=== PATIENT | male | born 1945 | race Caucasian/White ===

== ENCOUNTER 2019-07-27 20:00 | Outpatient (CLI) | payer OTHER, SELFPAY | END 2019-07-27 20:01 | disposition home or self-care (01) | LOC: SLEEP 07-28 09:38 | PROVIDERS: Family Provider Internal Medicine; PCP Internal Medicine; Visit Provider Internal Medicine | DX: G47.33 Obstructive sleep apnea (adult) (pediatric) (principal) | CPT/HCPCS: 95810 ==

== ENCOUNTER → 2019-08-09 05:04 | Day surgery (SDC) | payer OTHER, SELFPAY ==
[2019-08-07] MEDS: diphenhydrAMINE 50 mg Capsule PO (07:23)
[2019-08-07 08:14] LABS: Basophils # 0.1 10^3/uL (0.0-0.1); Basophils % 0.7 %; Eosinophils # 0.2 10^3/uL (0.0-0.8); Eosinophils % 2.7 %; Hemoglobin 14.6 g/dL (11.7-16.6); Lymphocytes # 2.2 10^3/uL (0.8-4.8); Lymphocytes % 30.5 %; Mean Corpuscular Hemoglobin 30.9 pg (28.0-34.0); Mean Corpuscular Volume 90.9 fL (80-94); Mean Platelet Volume 10.4 fL (7.4-10.4); Monocytes # 0.8 10^3/uL (0.2-0.9); Monocytes % 11.4 %; Neutrophils # 3.9 10^3/uL (1.8-7.7); Neutrophils % 54.3 %; Nucleated Red Blood Cells % 0 %; Platelet Count 286 10^3/cmm (130-400); Red Blood Count 4.73 10^6/uL (4.1-5.3); White Blood Count 7.1 10^3/uL (4.0-10.0)
[2019-08-07 08:19] LABS: INR 1.43 (0.8-1.2)
[2019-08-07 08:31] LABS: Alanine Aminotransferase 33 U/L (0-41); Albumin Level 4.7 g/dL (3.5-5.2); Alkaline Phosphatase 55 IU/L (40-130); Anion Gap 16.4 (5-19); Aspartate Amino Transferase 19 U/L (0-40); Blood Urea Nitrogen 27 mg/dL (8-23); Calcium 10.6 mg/Dl (8.8-10.2); Carbon Dioxide 28 mmol/L (22-29); Chloride 97 mmol/L (98-107); Globulin 2.8 g/dL (1.3-4.6); Glucose 113 mg/dL (74-106); Potassium 4.4 mmol/L (3.5-5.1); Sodium 137 mmol/L (136-145); Total Bilirubin 0.4 mg/dL (0.15-1.2); Total Protein 7.5 g/dL (6.6-8.7)
--- NOTE | 2019-08-07 09:52 | PC.NURSE ---
Discharged home Pt did not hold Pradaxa for 2 days like instructed to do. Dr Mcgill states to reschedule procedure. Pt rescheduled for 08/09/2019, given new instructions along with date and time of procedure. Verbalized understanding.
[2019-08-09] VITALS (14 sets, daily range): BP systolic 92–125; BP diastolic 44–65; PULSE 38–52; RESP 8–45; TEMP 36.7; O2SAT 94–100; BMI 33.5
--- NOTE | 2019-08-09 05:30 | XACV_ITS ---
Ht: 183 cm Wt: 112 kg BSA: 2.42 m2 Gender: Male : 1945 Any Known Allergies: Other Exam Priority: Routine Procedure(s): Procedure Description: Diagnostic procedure Procedure Description: Left Heart Catheterization Procedure Description: Left ventriculography Diagnostic Cath Status: Elective Diagnostic Findings LM has 0% stenosis. LAD has 0% stenosis. CX has 0% stenosis. dRCA: Mild 40% stenosis, GERALDO: 3 flow. Coronary angiography shows right dominance. The left main is a medium to large caliber vessel with no significant stenotic lesions. The left descending artery is a medium to large caliber vessel which appears to wrap around the LV apex. Some intimal irregularities were noted in the midsegment. No significant stenotic lesions. Exactly is a medium to large caliber vessel which gives off a high obtuse marginal branch(intermedius artery). No significant stenotic lesions were noted in these vessels. The right coronary artery is a medium to large caliber dominant vessel which was found to have an eccentric around 40% tubular narrowing in the distal segment. No other significant stenotic lesions were noted. Conclusions This is a 73-year-old white male present with complaints of increasing shortness of breath and palpitations. He was found to be in atrial fibrillation with rapid ventricular rate. His LV ejection fraction was around 35% by echocardiogram. He had a myocardial perfusion imaging which revealed mostly areas of fixed defects with small areas of reversible defects. Patient has been complaining of episodes of chest tightness/heaviness. He has a history of high blood pressure, type 2 diabetes and dyslipidemia. In view of his multiple risk factors and the abnormal objective findings, in order to further evaluate his coronary status, a cardiac catheterization was recommended. Patient underwent left heart catheterization with a left and right coronary angiogram and LV angiogram today. The findings are as follows. There is mild coronary artery disease with one vessel disease. Moderate left ventricular systolic dysfunction. Ejection fraction of 35- 40 %. LVEDP of 15 mmHg. Recommendations Continue current medical management and risk factor modification. Diagnostic RX Recommendation: medical therapy and/or counseling LV EDP: 15 mmHg Ejection Fraction: 35.0 % Left Ventriculography Findings: The LV gram revealed diffuse hypokinesia left undergoing with an ejection fraction around 35 to 40%. LV cavity was found to be mildly dilated. There is no significant mitral valve prolapse or any mitral regurgitation. The LVEDP was 15 prior to the LV angiogram and went down to 14 following the LV angiogram. Pressures Phase:Rest AO : 78 mmHg / 51 mmHg ( 64 mmHg ) @ 1:22:00 AM 108 mmHg / 28 mmHg ( 64 mmHg ) @ 1:33:00 AM LV : 112 mmHg / 2 mmHg / @ 1:32:00 AM 108 mmHg / 2 mmHg / @ 1:32:00 AM 196 mmHg / 36 mmHg / @ 1:32:00 AM 105 mmHg / 2 mmHg / @ 1:33:00 AM Clinical Evaluation EBL: 5mL-10mL Procedural Details Bolus stopped at 90 mL running at 100mL/hr. Medication's Wasted: Heparin = 1000 units. Contrast Material : Omnipaque 130 ml. [facility] time/date stamp having technically issues. All documentation and procedure done between 07:06am-07:43am on 08-09-2019. Procedure Consent Obtained. Admit Source: In Patient. Pre-Procedure Time Out. Identified patient by full name and date of as verbalized by the patient/guarantor. Does the consent match the physician's order: Yes. Accurate & Complete Informed Consent: Yes. Inpatient/Outpatient History & Physical on Chart: Yes. If H&P is completed, is and addenduem needed: No; If yes, is the addendum complete: N/A. Visualize and Verify Site with Patient/Guarantor: N/A. Relevant Radiology Images available: N/A. Pre-op teaching completed and patient verbalized understanding. The risks, benefits, and alternatives of sedation and/or procedure were discussed by physician. The patient agrees to continue. Procedure started. Correct patient, site and procedure confirmed by cath team. PERRLA. Strong, equal hand fur joiner bilaterally. Lungs clear x 5 lobes. IV Site on Arrival: 20 gauge in the right forearm. Pre Procedural Pulses: bilateral dorsalis pedis was 2+. Pre Procedural Pulses: bilateral posterior tibial was 2+. Pre Procedural Pulses: right radial was 3+. Oxygen started at 2liters/min via nasal canula. bilateral groins was prepped with chloroprep then draped in the usual sterile fashion. right radial was prepped with chloroprep then draped in the usual sterile fashion. Baseline sample Acquired. HR: 66 BPM. 0.9% Saline 250 ml I.V. bolus was started Mei Thomson RN. Physician notified. Physician arrived. Physician scrubbed in. Immediate Pre-Procedure Time Out. Correct Patient: Yes; Correct Procedure: Yes; Correct Site: Yes; Correct Patient Position: Yes; Correct Supplies: Yes; Dried Flammable Prep: Yes; Blood Products Available: N/A;. Lidocaine 1% infiltrated to the right radial. Arterial access obtained. A 5 martiniquais Ki catheter in over wire. Multiple views taken of left coronary artery. Catheter redirected to the RCA. Catheter removed over the exchange wire. A 5 martiniquais JR4 catheter in over wire. Multiple views taken of right coronary artery. Catheter out. A 5 martiniquais Angled Pig catheter in over wire. EDP Sample taken: LV 112/2,15; HR: 47 BPM; SpO2: 98%. LV gram performed in ESTRADA @ 10 mL/second for a total of 30 mL. EDP Sample taken: LV 105/2,14; HR: 49 BPM; SpO2: 98%. Pullback taken: LV Off; AO Off; Mean: , Peak to Peak: , SEP: ; HR: 50 BPM; SpO2: 96%. Catheter out. TR band placed. Hemostasis obtained. Post Procedure: Pulses reassessed and unchanged. PERRLA. Strong, equal hand fur joiner bilaterally. No VTE prophylaxis required. Medication's Wasted: Lidocaine 1% = 18 mg. Medication's Wasted: Nitro = 49.8 mg. Medication's Wasted: Other = Versed 1 mg. Medication's Wasted: Other = fentanyl 25 mg. Total IV fluids: 250 mL. Contrast type used: Omnipaque 300 mgI/mL, 500 mL bottle. Vital chart was stopped. [facility] Clinical Fraility Score: 4: Vulnerable. Gem Carver Indications: Cardiomyopathy. Chest Pain Symptom Assessment: Atypical Angina. Cardiovascular Instability: No. Post-op diagnosis: mild CAD, cardiomyopathy. Complications: none. Estimated blood loss: 5mL-10mL. Procedure completed. Patient transferred by wheelchair to CPRU. A TR Band was successful obtaining hemostatsis at the Right Radial artery insertion site. Site: Right Radial artery Sheath Size: 6 Fr Hemostasis Method: TR Band Hemostasis Success: Successful Procedure Medications Start: 7:07 AM Stop: 7:07 AM Medication: 0.9% Saline Amount: 250 ml Route: I.V. bolus Start: 7:16 AM Stop: 7:16 AM Medication: Versed 1 mg and Fentanyl 25 mcg Amount: 1 Start: 7:17 AM Stop: 7:17 AM Medication: 0.9% Saline Amount: 100 ml/hr Route: I.V. drip Start: 7:19 AM Stop: 7:19 AM Medication: Verapamil Amount: 5 mg Route: I.A. Start: 7:20 AM Stop: 7:20 AM Medication: Nitrogylcerin Amount: 200 mcg Route: I.A. Start: 7:22 AM Stop: 7:22 AM Medication: Versed Amount: 1 mg Route: I.V. Start: 7:22 AM Stop: 7:22 AM Medication: Heparin Amount: 5000 units Route: I.V. Start: 7:27 AM Stop: 7:27 AM Medication: 0.9% Saline Amount: 50 ml Route: I.V. bolus I, the attending physician, have reviewed and verified all procedure medications. Yes, all medications given per verbal order History/Risk Factors Hypertension: Yes Dyslipidemia: Yes Diabetic Therapy: Oral Peripheral Arterial Disease (PAD): No Myocardial Infarction (MO): No Obesity: No Renal Disease: No Tobacco Use: Never Prior Interventions PCI: No CABG: No Valve Surgery: No Report Signatures Finalized by:Dr Israel Mcgill MD [facility] on 08/09/2019 1:37:45 PM
[2019-08-09] MEDS: diphenhydrAMINE 50 mg Capsule PO (05:44)
[2019-08-09 06:04] LABS: Anion Gap 16.6 (5-19); Blood Urea Nitrogen 31 mg/dL (8-23); Calcium 10.2 mg/Dl (8.8-10.2); Carbon Dioxide 27 mmol/L (22-29); Chloride 97 mmol/L (98-107); Glucose 111 mg/dL (74-106); Potassium 4.6 mmol/L (3.5-5.1); Sodium 136 mmol/L (136-145)
--- NOTE | 2019-08-09 06:39 | PC.NURSE ---
DR APPLE CALLED WITH [facility] RE DRAW CREATININE SAME BEFORE AT 1.3. NEW ORDERS RECEIVED FOR A 250 ML NS BOLUS.
[2019-08-09] MEDS: sodium chloride 0.9% 250 ML 999 ML IV (06:53)
--- NOTE | 2019-08-09 07:45 | PC.NURSE ---
BACK FROM CUSHION PADDER RECEIVED THE PATIENT BACK VIA WHEELCHAIR WITH DANIELLE HOANG RN, CAP JEWEL PLATE ASSEMBLER, FROM THE CUSHION PADDER S/P DIAGNOSTIC [facility]. PATIENT AMBULATED TO THE BED WITHOUT DIFFICULTLY. PATIENT SLIGHTLY DROWSY BUT ALERT AND ORIENTATED, REQUESTING HIS JASMINE TO READ. SUPERVISOR OF RESEARCH PLACED AND VITAL SIGNS OBTAINED. TR BAND INTACT TO THE RIGHT RADIAL. NO BLEEDING OR HEMATOMA NOTED. PALPABLE RADIAL PULSE. IVF RUNNING AT 100ML/HR TO THE PIV IN RIGHT FA ORDERED. NO OTHER ASSESSMENT CHANGES NOTED FROM PRE CATH ASSESSMENT. WILL CONTINUE TO MONITOR.
--- NOTE | 2019-08-09 07:50 | PC.NURSE ---
DR APPLE CALLED PATIENT'S HR 29-56 AFTER COMING BACK FROM THE ELECTROCHEMIST. BP STABLE AT 118/65. PATIENT ASYMPTOMATIC WITH NO COMPLAINTS VOICED. DR APPLE NOTIFIED. ORDERS RECEIVED TO WATCH THE PATIENT AND IF THE BRADYCARDIA PERSISTS OR THE PATIENT BECOMES SYMPTOMATIC GIVE ATROPINE 1MG IV.
--- NOTE | 2019-08-09 08:45 | PC.NURSE ---
TR BAND NOTE LETTING THE AIR OUT OF THE TR BAND PER PROTOCOL.
--- NOTE | 2019-08-09 08:50 | PC.NURSE ---
OOB TO CHAIR PATIENT REQUESTING TO GET OUT OF THE BED TO THE RECLINER. BREAKFAST TO THE PATIENT.
--- NOTE | 2019-08-09 09:45 | PC.NURSE ---
TR BAND OFF TR BAND OFF. NO BLEEDING OR HEMATOMA NOTED. SITE CLEANSED WITH WARM WATER AND PATTED DRY. A LARGE BANDAID WAS APPLIED TO THE SITE AND SECURED WITH COBAN. PATIENT TOLERATED WELL. HE CONTINUES TO BE UP IN THE RECLINER READING HIS JASMINE. NO OTHER ASSESSMENT CHANGES NOTED.
== END | disposition home or self-care (01) ==
PROVIDERS: Family Provider Internal Medicine; PCP Internal Medicine; Visit Provider Internal Medicine Cardiovascular Disease
DX: I25.10 Atherosclerotic heart disease of native coronary artery without angina pectoris (principal); I50.22 Chronic systolic (congestive) heart failure; I48.91 Unspecified atrial fibrillation; I10 Essential (primary) hypertension; E11.9 Type 2 diabetes mellitus without complications; E78.5 Hyperlipidemia, unspecified
CPT/HCPCS: 36415; 80048; 80053; 85025; 85610; 86850; 86900; 93452; C1769; C1887; C1894; J1644; J2001; J2250; J3010; J3490; J7030; J7050; Q0163; Q9967

== ENCOUNTER → 2019-08-16 13:50 | Outpatient (BNVA) | payer OTHER, SELFPAY | PROVIDERS: Family Provider Internal Medicine; PCP Internal Medicine; Visit Provider Nurse Practitioner Family | DX: I25.10 Atherosclerotic heart disease of native coronary artery without angina pectoris (principal) | CPT/HCPCS: 80048 ==

== ENCOUNTER 2019-09-05 20:00 | Outpatient (CLI) | payer OTHER, SELFPAY | END 2019-09-05 20:01 | disposition home or self-care (01) | LOC: SLEEP 09-06 10:04 | PROVIDERS: Family Provider Internal Medicine; PCP Internal Medicine; Visit Provider Internal Medicine | DX: G47.33 Obstructive sleep apnea (adult) (pediatric) (principal) | CPT/HCPCS: 95810; 95811 ==

== ENCOUNTER 2019-10-14 00:40 | Emergency (ER) | payer OTHER, SELFPAY ==
[2019-10-14 00:42] VITALS: BP 163/74; PULSE 87; RESP 18; TEMP 37.5; O2SAT 98; BMI 32.0
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
--- NOTE | 2019-10-14 00:54 | XRR_ITS ---
PROCEDURE INFORMATION: Exam: XR Left Knee Exam date and time: 10/14/2019 12:55 AM Age: 74 years old Clinical indication: Injury or trauma; Fall; Initial encounter; Blunt trauma; Knee; Left TECHNIQUE: Imaging protocol: XR Left knee. Views: 3 views. COMPARISON: No relevant prior studies available. FINDINGS: Bones/joints: Large joint effusion. There is subtle linear lucency through the medial margin of the medial femoral condyle visible on the frontal view. The proximal tibia and fibula are intact. The patella is intact. Soft tissues: Periarticular edema is seen medially. Vasculature: There is marked peripheral arterial atherosclerotic disease. XR/XR knee LT 3V* [id number] IMPRESSION: 1. Suspect nondisplaced fracture in the medial femoral condyle. 2. Large joint effusion.
[2019-10-14 01:00] VITALS: RESP 18; O2SAT 96
[2019-10-14] MEDS: morphine 4 mg/mL SDV 1 mL IVP ×2 (01:00→01:59)
[2019-10-14] MEDS: ondansetron 2 mg/ML SDV 2 mL 4 MG IVP (01:01)
[2019-10-14 01:04] VITALS: PULSE 77
[2019-10-14 01:59] VITALS: RESP 18; O2SAT 98
[2019-10-14 02:47] VITALS: RESP 18; O2SAT 96
[2019-10-14] MEDS: oxyCODONE-APAP 5-325 mg Tablet 2 TAB PO (02:47)
[2019-10-14 03:04] VITALS: BP 128/74; PULSE 93; RESP 18; O2SAT 96
--- NOTE | 2019-10-16 14:37 | DCPLANNER ---
Addendum entered by Jennie Conn 10/16/19 14:40: Patient has [facility], case worker called [facility] to report that patient was seen in the ER and that patient needed a follow up appointment for patient with ortho. promotion manager spoke with Mei, gave her the appointment information. promotion manager will call when appointment is scheduled. Original Note: promotion manager had message to schedule a follow up appointment for patient with ortho. promotion manager called the ortho clinic, spoke with Gillian. promotion manager gave clinic patients information, was told that patients information would be printed and reviewed. Clinic will call case worker and patient with appointment information.
--- NOTE | 2019-10-18 15:12 | DCPLANNER ---
Patient had an appointment scheduled for 10.17.19 with ortho. Patient did attend the appointment.
== END 2019-10-14 03:05 | disposition home or self-care (01) ==
PROVIDERS: Emergency Provider Emergency Medicine; Family Provider Internal Medicine; PCP Internal Medicine
DX: S72.435A Nondisplaced fracture of medial condyle of left femur, initial encounter for closed fracture (principal); M25.462 Effusion, left knee; I48.91 Unspecified atrial fibrillation; I11.0 Hypertensive heart disease with heart failure; I50.9 Heart failure, unspecified; J44.9 Chronic obstructive pulmonary disease, unspecified; E11.9 Type 2 diabetes mellitus without complications; E78.5 Hyperlipidemia, unspecified; E66.9 Obesity, unspecified; Z68.32 Body mass index [BMI] 32.0-32.9, adult; Z79.01 Long term (current) use of anticoagulants; Z79.51 Long term (current) use of inhaled steroids; Z79.84 Long term (current) use of oral hypoglycemic drugs; W01.0XXA Fall on same level from slipping, tripping and stumbling without subsequent striking against object, initial encounter
CPT/HCPCS: 12345; 20610; 29530; 73562; 96374; 96375; 96376; 99282; 99283; J2270; J2405; J3490

== ENCOUNTER → 2019-10-17 12:48 | Outpatient (BNVA) | payer OTHER, SELFPAY | PROVIDERS: Family Provider Internal Medicine; PCP Internal Medicine; Referring Provider Emergency Medicine; Visit Provider Specialist | DX: M25.462 Effusion, left knee (principal) | CPT/HCPCS: 73562 ==

== ENCOUNTER 2019-10-17 14:01 | Outpatient (CLI) | payer OTHER, SELFPAY ==
[2019-10-17 16:36] LABS: Crystals, Fluid See Path Consult
== END 2019-10-17 14:02 | disposition home or self-care (01) ==
LOC: SPT 14:03
PROVIDERS: Family Provider Internal Medicine; PCP Internal Medicine; Visit Provider Specialist
DX: Z46.89 Encounter for fitting and adjustment of other specified devices (principal); S72.435D Nondisplaced fracture of medial condyle of left femur, subsequent encounter for closed fracture with routine healing; X58.XXXD Exposure to other specified factors, subsequent encounter; M25.462 Effusion, left knee; S82.009A Unspecified fracture of unspecified patella, initial encounter for closed fracture; X58.XXXA Exposure to other specified factors, initial encounter
CPT/HCPCS: 80500; 84450; 87070; 89051; L1832

== ENCOUNTER 2019-10-30 12:35 | Outpatient (CLI) | payer OTHER, SELFPAY ==
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
== END 2019-10-30 12:36 | disposition home or self-care (01) ==
LOC: RADSHAW 12:36
PROVIDERS: Family Provider Internal Medicine; PCP Internal Medicine; Visit Provider Specialist
DX: S72.435A Nondisplaced fracture of medial condyle of left femur, initial encounter for closed fracture (principal); X58.XXXA Exposure to other specified factors, initial encounter; M17.12 Unilateral primary osteoarthritis, left knee; M25.462 Effusion, left knee
CPT/HCPCS: 73721

== ENCOUNTER 2021-06-02 10:34 | Outpatient (CLI) | payer OTHER, SELFPAY ==
--- NOTE | 2021-06-02 10:37 | MR_ITS ---
WS: [id number] MRI HEAD WITH CONTRAST WITH ATTENTION TO THE INTERNAL AUDITORY CANALS TECHNIQUE: Sagittal T1, T2 axial, T2 axial flair, axial susceptibility weighted imaging, axial diffus ion weighted images, and coronal T2 images were obtained. Pre and post T1 axial and post T1 coronal i mages. ADC and FSPGR images. Post gadolinium images with attention to the internal auditory canals. A xial fiesta imaging. CLINICAL INFORMATION: MIXED CONDUCTIVE/SENSORINEURAL HEARING LOSS;DIZZINESS AND COMPARISON: None. FINDINGS: No evidence of restricted diffusion to suggest acute ischemia. Ventricular system and basal cisterns are patent. Mild small vessel changes. Moderate parenchymal volume loss. Normal posterior fossa. Norm al vascular flow voids at the skull base. No extra-axial fluid collections. No evidence of mass or ma ss effect. Paranasal sinuses and mastoid air cells well aerated. Small amount of fluid in the maxilla ry sinuses. No hemosiderin on susceptibly weighted images. Proximal 7th and 8th cranial nerves are normal in appe arance. Normal trigeminal nerve root entry zones. Normal cavernous sinuses and Meckel's cave. No evid ence of enhancing IAC or CP angle mass. No abnormal gadolinium enhancement. Normal dural venous sinus es. MR/MR iac's wo/w con* [id number] IMPRESSION: 1. No evidence of restricted diffusion to suggest acute ischemia. 2. Mild small vessel changes with moderate parenchymal volume loss. 3. Proximal 7th and 8th cranial nerves are normal in appearance. No evidence o f enhancing IAC or CP angle mass. 4. Mastoid air cells are well aerated. Small amount of fluid in the maxillary sinuses. 5. No abnormal gadolinium enhancement.
[2021-06-02] MEDS: gadobenate dimeglumine 20 mL vial IV (12:13)
== END 2021-06-02 10:35 | disposition home or self-care (01) ==
LOC: RADSHAW 10:35
PROVIDERS: Family Provider Internal Medicine; PCP Family Medicine; Visit Provider Otolaryngology
DX: H90.8 Mixed conductive and sensorineural hearing loss, unspecified (principal); R42 Dizziness and giddiness
CPT/HCPCS: 70553; A9577

== ENCOUNTER 2021-09-01 14:55 | Outpatient (CLI) | payer OTHER, SELFPAY ==
--- NOTE | 2021-09-01 15:00 | USCV_ITS ---
Gabriel Triana Age: 75 Gender: M : 1945 Exam Date: 09/01/2021 15:09 Ordering Phys: Israel Mcgill MD ([email or web address]) Technologist: Exam Location: [facility] [place] Indication: [id number] BP: 113 / 82 HR: 57 Rhythm: Sinus Technical Quality: Adequate MEASUREMENTS (Male / Female) Normal Values 2D ECHO LV Diastolic Diameter PLAX 5.6 cm 4.2 - 5.9 / 3.9 - 5.3 cm LV Systolic Diameter PLAX 5.6 cm IVS Diastolic Thickness 1.6 cm 0.6 - 1.0 / 0.6 - 0.9 cm IVS Systolic Thickness 1.6 cm LVPW Diastolic Thickness 1.5 cm 0.6 - 1.0 / 0.6 - 0.9 cm LVPW Systolic Thickness 1.4 cm LVOT Diameter 2.1 cm LV Ejection Fraction 2D Teich 7.6 % LV Ejection Fraction MOD 2C 42.6 % LV Ejection Fraction 2C AL 44.2 % LA Diameter 4.5 cm LA Width 5.9 cm LA Height 6.7 cm RA Width 5.1 cm RA Height 7.2 cm Aorta at Sinotubular Diameter 3.1 cm M-MODE Aortic Annulus Diameter 2.5 cm LA Ao Ratio MM 1.8 MV E Point Septal Separation 1.4 cm DOPPLER LVOT Peak Velocity 116.3 cm/s MV Area PHT 5.0 cm squared Mitral E to A Ratio 2.1 MV E' Velocity 46.5 cm/s Mitral E to MV E' Ratio 12.4 Mitral E to LV E' Lateral Ratio 17.6 Mitral E to LV E' Septal Ratio 9.7 TR Peak Velocity 266.7 cm/s TR Peak Gradient 28.4 mmHg TV Peak E Velocity 126.0 cm/s Right Atrial Pressure 3.0 mmHg Pulmonary Artery Systolic Pressu 31.4 mmHg PV Peak Velocity 84.0 cm/s FINDINGS Left Ventricle Moderately increased left ventricular cavity size. Moderately decreased left ventricular systolic function. Left ventricular ejection fraction is estimated at 30 %. Global left ventricular hypokinesis. Abnormal septal motion consistent with conduction abnormality. Abnormal diastolic function. Right Ventricle Normal right ventricular size and systolic function. Right ventricular systolic pressure 30 mmHg. Right Atrium Mildly increased right atrial size. Left Atrium Moderately increased left atrial size. Mitral Valve Structurally normal mitral valve. Trace mitral valve regurgitation. Aortic Valve Aortic valve not well visualized. No aortic valve stenosis. Trace aortic valve regurgitation. Tricuspid Valve Tricuspid valve not well visualized. Tace to mild tricuspid valve regurgitation. Pulmonic Valve Pulmonic valve not well visualized. Trace pulmonary valve regurgitation. Pericardium No pericardial effusion. Aorta Normal size aortic root and proximal ascending aorta. Normal- sized inferior vena cava with normal respiratory variation. CONCLUSIONS 1. This is a technically difficult study. 2. Moderately increased left ventricular cavity size. Severely decreased left ventricular systolic function. Left ventricular ejection fraction is estimated at 30 %. Global left ventricular hypokinesis. Abnormal septal motion consistent with conduction abnormality. 3. Pulmonary artery pressure estimated at 30 mmHg. 4. Trace aortic valve regurgitation. 5. When compared to previous echocardiogram report dated 06/09/2019, left ventricular systolic function may have decreased. Repeat study with echo contrast is recommended for better assessment of LV function. Judy Lewis MD (Electronically Signed) Final Date: 04 September 2021 17:45 S
== END 2021-09-01 14:56 | disposition home or self-care (01) ==
LOC: RAD 14:57
PROVIDERS: PCP Family Medicine; Visit Provider Internal Medicine Cardiovascular Disease
DX: I42.0 Dilated cardiomyopathy (principal); I35.1 Nonrheumatic aortic (valve) insufficiency; R06.00 Dyspnea, unspecified
CPT/HCPCS: 93306

== ENCOUNTER 2021-12-11 06:57 | Outpatient (CLI) | payer OTHER, SELFPAY ==
--- NOTE | 2021-12-11 07:12 | USCV_ITS ---
Gabriel Triana Age: 76 Gender: M : 1945 Exam Date: 12/11/2021 07:28 Ordering Phys: Israel Mcgill MD ([email or web address]) Technologist: Exam Location: [facility] [place] Indication: lv funtion BP: 113 / 72 HR: Rhythm: Sinus Technical Quality: MEASUREMENTS (Male / Female) Normal Values 2D ECHO LV Ejection Fraction MOD 2C 43.2 % LV Ejection Fraction 2C AL 41.9 % FINDINGS Left Ventricle Contrast echocardiogram was performed with the [employer]ison . The left ventricle was found to have diffuse hypokinesia. LV ejection fraction was estimated to be 40% by method of disc Right Ventricle Right Atrium Left Atrium Mildly increased left atrial size. Mitral Valve Aortic Valve Tricuspid Valve Pulmonic Valve Pericardium Aorta IVC CONCLUSIONS 1. Diffuse hypokinesia of the left ventricle. 2. LV ejection fraction estimated to be 40% by method of disc. 3. Mildly dilated left atrium. 4. No pericardial effusion Compared to the study from 06/07/2019, there may not be a significant change in the ejection fraction Dr Israel Mcgill MD [facility] (Electronically Signed) Final Date: 11 Dec 2021 13:37 S
[2021-12-11] MEDS: perflutren protein-a microsphr 0.22 mg/mL SDV 3 mL IV (07:45)
== END 2021-12-11 06:58 | disposition home or self-care (01) ==
LOC: RAD 06:58
PROVIDERS: PCP Family Medicine; Visit Provider Internal Medicine Cardiovascular Disease
DX: I50.1 Left ventricular failure, unspecified (principal); I77.819 Aortic ectasia, unspecified site
CPT/HCPCS: C8924

== ENCOUNTER → 2022-01-12 11:15 | Outpatient (BNVA) | payer OTHER, SELFPAY | PROVIDERS: PCP Family Medicine; Visit Provider Internal Medicine Cardiovascular Disease | DX: I48.11 Longstanding persistent atrial fibrillation (principal); I11.0 Hypertensive heart disease with heart failure; I50.22 Chronic systolic (congestive) heart failure; I27.20 Pulmonary hypertension, unspecified; J44.9 Chronic obstructive pulmonary disease, unspecified | CPT/HCPCS: 99214 ==

== ENCOUNTER → 2022-01-28 07:09 | Outpatient (BNVA) | payer OTHER, SELFPAY | PROVIDERS: PCP Family Medicine; Visit Provider Otolaryngology | DX: S09.91XA Unspecified injury of ear, initial encounter (principal); L29.9 Pruritus, unspecified; H91.93 Unspecified hearing loss, bilateral; H93.13 Tinnitus, bilateral; X58.XXXA Exposure to other specified factors, initial encounter | CPT/HCPCS: 99203 ==

== ENCOUNTER → 2022-07-16 11:19 | Outpatient (BNVA) | payer OTHER, SELFPAY | PROVIDERS: PCP Family Medicine; Visit Provider Internal Medicine Cardiovascular Disease | DX: I25.10 Atherosclerotic heart disease of native coronary artery without angina pectoris (principal); I11.0 Hypertensive heart disease with heart failure; I50.22 Chronic systolic (congestive) heart failure; I27.20 Pulmonary hypertension, unspecified; J44.9 Chronic obstructive pulmonary disease, unspecified; I42.0 Dilated cardiomyopathy; I48.11 Longstanding persistent atrial fibrillation | CPT/HCPCS: 99214 ==

== ENCOUNTER 2022-08-29 20:41 | Emergency (ER) | payer OTHER, SELFPAY ==
[2022-08-29 20:45] VITALS: BP 119/79; PULSE 122; RESP 22; O2SAT 95
--- NOTE | 2022-08-29 21:51 | ECG_ITS ---
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 Measurements Intervals Circle Rate: 93 P: 0 ME: 0 QRS: -23 QRSD: 174 T: 83 QT: 422 QTc: 526 Interpretive Statements ATRIAL FIBRILLATION Left bundle branch block Compared to ECG 06/07/2019 21:30:42 Intraventricular conduction delay now present Myocardial infarct finding now present Left-axis deviation no longer present Electronically Signed On 08-30-2022 8:41:35 [employer] WORKER by Edmundo Willard M.D. [email or web address]
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
--- NOTE | 2022-08-29 21:51 | XRR_ITS ---
PROCEDURE INFORMATION: Exam: XR Chest Exam date and time: 08/29/2022 10:04 PM Age: 76 years old Clinical indication: Shortness of breath; Additional info: SOB TECHNIQUE: Imaging protocol: Radiologic exam of the chest. Views: 1 view. COMPARISON: CR XR chest 1V [id number] 06/06/2019 5:30 PM FINDINGS: Lungs: Mild COPD. Lung base atelectasis or scarring. No consolidation. Pleural spaces: No pneumothorax. No definite effusion. Heart/Mediastinum: The heart is quite large. Vasculature: Advanced diffuse vascular calcification noted. Bones/joints: Unremarkable. XR/XR chest 1V portable [id number] IMPRESSION: Stable chest with large heart but no acute process.
[2022-08-29 21:57] LABS: Basophils # 0.1 10^3/uL (0.0-0.1); Basophils % 0.4 %; Eosinophils # 0.1 10^3/uL (0.0-0.8); Eosinophils % 0.5 %; Hematocrit 36.7 % (42.0-52.0); Hemoglobin 12.3 g/dL (11.7-16.6); Lymphocytes # 1.2 10^3/uL (0.8-4.8); Lymphocytes % 8.4 %; Mean Corpuscular HGB Conc 33.5 g/dL (30.0-36.0); Mean Corpuscular Hemoglobin 31.1 pg (28.0-34.0); Mean Corpuscular Volume 92.9 fl (80-94); Mean Platelet Volume 11.3 fL (7.4-10.4); Monocytes # 2.4 10^3/uL (0.2-0.9); Monocytes % 16.7 %; Neutrophils # 10.34 10^3/uL (1.8-7.7); Neutrophils % 73.4 %; Nucleated Red Blood Cells % 0 %; Platelet Count 247 10^3/cmm (130-400); Red Blood Count 3.95 10^6/uL (4.1-5.3); Red Cell Distribution Width 12.3 % (12.1-15.1); White Blood Count 14.1 10^3/uL (4.0-10.0)
[2022-08-29 22:13] LABS: Troponin(5th) Baseline 31 ng/L (0-15)
[2022-08-29 22:21] LABS: Alanine Aminotransferase 50 U/L (0-41); Albumin Level 3.8 g/dL (3.5-5.2); Alkaline Phosphatase 42 U/L (40-130); Anion Gap 17.5 (5-19); Aspartate Amino Transferase 38 U/L (0-40); Blood Urea Nitrogen 21 mg/dL (8-23); Calcium 8.9 mg/dL (8.5-10.5); Carbon Dioxide 28 mmol/L (22-29); Chloride 99 mmol/L (98-107); Globulin 2.6 g/dL (1.3-4.6); Glucose 127 mg/dL (65-115); NT Pro B Type Natriuretic Pept 19579 pg/mL (0-450); Osmolality Calculated 297 mOsm/kg (285-295); Potassium 3.5 mmol/L (3.5-5.1); Sodium 141 mmol/L (136-145); Total Bilirubin 1.3 mg/dL (0.15-1.2); Total Protein 6.4 g/dL (6.6-8.7)
[2022-08-29] MEDS: FUROsemide 10 mg/mL SDV 4mL 40 MG IVP (23:46)
[2022-08-30 00:32] LABS: Troponin 5 2HR 26.49 ng/L (0-15)
[2022-08-30 00:35] LABS: Troponin 5 2HR Delta -4.51 ABS# (0-10)
[2022-08-30 00:40] VITALS: BP 124/60; PULSE 70; RESP 18; O2SAT 94
== END 2022-08-30 01:37 | disposition home or self-care (01) ==
PROVIDERS: Emergency Medicine; Emergency Provider Emergency Medicine; PCP Family Medicine
DX: I11.0 Hypertensive heart disease with heart failure (principal); I50.9 Heart failure, unspecified; Z79.84 Long term (current) use of oral hypoglycemic drugs; J44.9 Chronic obstructive pulmonary disease, unspecified; E11.9 Type 2 diabetes mellitus without complications; E78.5 Hyperlipidemia, unspecified
CPT/HCPCS: 71045; 80053; 83880; 84484; 85025; 93005; 96374; 99285; J1940

== ENCOUNTER 2022-09-02 10:00 | Emergency (ER) | payer OTHER, SELFPAY ==
[2022-09-02 10:01] VITALS: BP 122/76; PULSE 90; RESP 22; TEMP 37.1; O2SAT 93; BMI 31.1
--- NOTE | 2022-09-02 10:11 | ECG_ITS ---
[facility] Test Date: 2022-09-02 Pat Name: Gabriel Triana Department: Room: Gender: Male Hospice Executive Director: : 1945 Requested By: Ruben Torres Order Number: [id number] Jai MD: Judy Lewis M.D. Measurements Intervals [place] Rate: 101 P: 0 AR: 0 QRS: -33 QRSD: 176 T: 71 QT: 408 QTc: 530 Interpretive Statements ATRIAL FIBRILLATION WITH RAPID VENTRICULAR RESPONSE WITH ABERRANT CONDUCTION OR VENTRICULAR PREMATURE COMPLEXES LEFT AXIS DEVIATION [QRS AXIS < -30] LEFT BUNDLE BRANCH BLOCK [120+ ms QRS DURATION, 80+ ms Q/S IN V1/V2, 85+ ms R IN I/aVL/V5/V6] Compared to ECG 08/29/2022 21:54:50 Aberrant conduction of supraventricular beat(s) now present Ventricular premature complex(es) now present Left-axis deviation now present Electronically Signed On 09-02-2022 12:53:41 LOADING MACHINE OPERATOR HELPER by Judy Lewis M.D. [id number]
--- NOTE | 2022-09-02 10:15 | XRR_ITS ---
PROCEDURE INFORMATION: Exam: XR Chest Exam date and time: 09/02/2022 10:16 AM Age: 77 years old Clinical indication: Cough and dyspnea; Additional info: Dyspnea/cough TECHNIQUE: Imaging protocol: Radiologic exam of the chest. Views: 1 view. COMPARISON: CR (CHEST, ) 08/29/2022 10:04 PM FINDINGS: Lungs: There is nonspecific interstitial congestion in the retrocardiac left lower lobe this finding is similar to prior examination. This finding may reflect atelectasis. Hyperexpansion of the lungs are seen corresponding COPD. The lungs are otherwise unremarkable Pleural spaces: Unremarkable. No pleural effusion. No pneumothorax. Heart/Mediastinum: Unremarkable. No cardiomegaly. Bones/joints: Unremarkable. XR/XR chest 1V portable [id number] IMPRESSION: 1. COPD. 2. Left lower lobe atelectasis.
[2022-09-02 10:29] LABS: Basophils # 0.1 10^3/uL (0.0-0.1); Basophils % 0.5 %; Eosinophils # 0.2 10^3/uL (0.0-0.8); Eosinophils % 1.1 %; Hemoglobin 13.7 g/dL (11.7-16.6); Lymphocytes # 2.6 10^3/uL (0.8-4.8); Lymphocytes % 16.3 %; Mean Corpuscular HGB Conc 34.3 g/dL (30.0-36.0); Mean Corpuscular Hemoglobin 31.7 pg (28.0-34.0); Mean Corpuscular Volume 92.6 fl (80-94); Mean Platelet Volume 10.4 fL (7.4-10.4); Monocytes # 1.3 10^3/uL (0.2-0.9); Monocytes % 8.2 %; Neutrophils # 11.41 10^3/uL (1.8-7.7); Nucleated Red Blood Cells % 0 %; Platelet Count 420 10^3/cmm (130-400); Red Blood Count 4.32 10^6/uL (4.1-5.3); Red Cell Distribution Width 12.3 % (12.1-15.1); White Blood Count 15.8 10^3/uL (4.0-10.0)
[2022-09-02 10:40] LABS: Alanine Aminotransferase 235 U/L (0-41); Albumin Level 3.8 g/dL (3.5-5.2); Alkaline Phosphatase 68 U/L (40-130); Anion Gap 17.5 (5-19); Aspartate Amino Transferase 183 U/L (0-40); Blood Urea Nitrogen 19 mg/dL (8-23); Calcium 9.4 mg/dL (8.5-10.5); Carbon Dioxide 30 mmol/L (22-29); Chloride 92 mmol/L (98-107); Globulin 3.4 g/dL (1.3-4.6); Glucose 123 mg/dL (65-115); Osmolality Calculated 286 mOsm/kg (285-295); Potassium 3.5 mmol/L (3.5-5.1); Sodium 136 mmol/L (136-145); Total Bilirubin 0.5 mg/dL (0.15-1.2); Total Protein 7.2 g/dL (6.6-8.7)
[2022-09-02 10:41] VITALS: BP 129/68; PULSE 93; O2SAT 94
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
[2022-09-02 11:04] LABS: NT Pro B Type Natriuretic Pept 3319 pg/mL (0-450)
[2022-09-02 11:07] LABS: Slide Review Slide Review Perform
--- NOTE | 2022-09-02 11:25 | PC.PHAR ---
PT STATES HE TAKES CARE OF HIS OWN MEDICATIONS-PT STATES HE IS NOT TAKING DIGOXIN 125MCG DAILY ANYMORE ,MEDICATION [facility] ON [facility]-PT STATES BUYS OTC MAG OX 400MG UNTIL [facility] SENDS- PT STATES BEEN TAKING ONE TAB BID-[facility] L[facility] HAS 4 TABS (1600MG)DAILY FOR 7 DAYS AND THEN ONE TAB DAILY-PT STATES UNSURE IF TAKING REMERON 15MG HS MEDICATION ON [facility] MED L[facility]-KCL IS MEDICATION ON [facility] L[facility] -PT STATES NOT STARTED TAKING STATES WAITING TO GET IN THE MAIL-ENTRESTO BOTTLE HAS 1 TAB PO BID-PT STATES WAS DECREASED TO ONE TAB DAILY-NOTES ARE MADE IN THE PHARMACY COMMENTS
[2022-09-02 12:11] VITALS: BP 109/61; PULSE 78; O2SAT 94
[2022-09-02 12:34] LABS: Adenovirus Not Detected (NOT DETECT); Chlamydia Pneumoniae Not Detected (NOT DETECT); Coronavirus 229E,HKU1,NL63,OC4 Detected (NOT DETECT); Human Metapneumovirus Not Detected (NOT DETECT); Human Rhinovirus/Enterovirus Not Detected (NOT DETECT); Influenza A Not Detected (NOT DETECT); Influenza A H1 Not Detected (NOT DETECT); Influenza A H1-2009 Not Detected (NOT DETECT); Influenza A H3 Not Detected (NOT DETECT); Influenza B Not Detected (NOT DETECT); Mycoplasma Pneumoniae Not Detected (NOT DETECT); Parainfluenza Virus Type 1 Not Detected (NOT DETECT); Parainfluenza Virus Type 2 Not Detected (NOT DETECT); Parainfluenza Virus Type 3 Not Detected (NOT DETECT); Parainfluenza Virus Type 4 Not Detected (NOT DETECT); Respiratory Syncytial Virus A Not Detected (NOT DETECT); Respiratory Syncytial Virus B Not Detected (NOT DETECT); SARS-COV-2 Not Detected (NOT DETECT)
[2022-09-02 12:40] VITALS: O2SAT 93; O2SAT 94
[2022-09-02 13:50] VITALS: BP 133/84; PULSE 85; RESP 18; O2SAT 94
== END 2022-09-02 13:52 | disposition home or self-care (01) ==
PROVIDERS: Emergency Provider Family Medicine; PCP Family Medicine
DX: J06.9 Acute upper respiratory infection, unspecified (principal); I11.0 Hypertensive heart disease with heart failure; I50.9 Heart failure, unspecified; B34.2 Coronavirus infection, unspecified
CPT/HCPCS: 71045; 80053; 83880; 85025; 87635; 93005; 99285

== ENCOUNTER → 2022-09-07 14:52 | Outpatient (BNVA) | payer OTHER, SELFPAY | PROVIDERS: PCP Family Medicine; Visit Provider Nurse Practitioner Family | DX: I42.0 Dilated cardiomyopathy (principal); I25.10 Atherosclerotic heart disease of native coronary artery without angina pectoris; I48.11 Longstanding persistent atrial fibrillation; I11.0 Hypertensive heart disease with heart failure; I50.9 Heart failure, unspecified | CPT/HCPCS: 99214 ==

== ENCOUNTER 2023-02-11 08:59 | Outpatient (CLI) | payer OTHER, SELFPAY ==
--- NOTE | 2023-02-11 09:30 | USCV_ITS ---
Gabriel Triana Age: 77 Gender: M : 1945 Exam Date: 02/11/2023 09:17 Ordering Phys: Israel Mcgill MD ([email or web address]) Technologist: Alvaro Tai Exam Location: [facility] Indication: SOB/ AFIB BP: 116 / 55 HR: 60 Rhythm: Sinus Technical Quality: Adequate MEASUREMENTS (Male / Female) Normal Values 2D ECHO LVOT Diameter 2.1 cm LV Ejection Fraction MOD 2C 29.1 % LV Ejection Fraction 2C AL 28.9 % LA Diameter 4.7 cm LA Width 4.5 cm LA Height 7.1 cm RA Width 5.5 cm RA Height 7.3 cm Aorta at Sinotubular Diameter 2.3 cm IVC Diameter 2.0 cm M-MODE Aortic Annulus Diameter 2.9 cm LA Ao Ratio MM 1.6 MV E Point Septal Separation 2.6 cm DOPPLER AV Peak Velocity 133.0 cm/s LVOT Peak Velocity 107.0 cm/s AV Area Cont Eq vti 2.7 cm squared AV Area Cont Eq pk 2.9 cm squared MV Peak Velocity 92.0 cm/s MV Area PHT 5.0 cm squared Mitral E to A Ratio 2.5 MV E' Velocity 38.0 cm/s Mitral E to MV E' Ratio 7.5 Mitral E to LV E' Lateral Ratio 5.9 Mitral E to LV E' Septal Ratio 10.5 TR Peak Velocity 325.3 cm/s TR Peak Gradient 42.3 mmHg TR Mean Velocity 222.7 cm/s TR Mean Gradient 23.0 mmHg TR Velocity Time Integral 92.7 cm Right Atrial Pressure 3.0 mmHg Pulmonary Artery Systolic Pressu 45.3 mmHg PV Peak Velocity 88.0 cm/s RV Acceleration Time 0.1 s RV Ejection Time 0.3 s RV AcT/ET 0.5 FINDINGS Left Ventricle Severe diffuse hypokinesia left ventricular ejection fraction of around 22% by MOD. Moderately dilated left ventricle Right Ventricle Normal right ventricular size and systolic function. Right Atrium Moderately increased right atrial size. Left Atrium Moderately increased left atrial size. Mitral Valve Mild mitral valve regurgitation. Aortic Valve Trace to mild aortic valve regurgitation. Tricuspid Valve Mild tricuspid valve regurgitation. Estimated pulmonary artery peak systolic pressure 44 mmHg Pulmonic Valve Pulmonic valve not well visualized. Pericardium No pericardial effusion. Aorta Normal aortic annulus size. IVC Inferior vena cava not visualized. CONCLUSIONS Severe diffuse hypokinesia left ventricular ejection fraction of around 22% by MOD. Moderately dilated left ventricle Moderate biatrial enlargement Normal right ventricular size and systolic function. Mild mitral valve regurgitation. Trace to mild aortic valve regurgitation. Mild tricuspid valve regurgitation. Estimated pulmonary artery peak systolic pressure 44 mmHg There is no pericardial effusion. There are no intracardiac masses. Technically difficult study because of the poor ultrasonic window. (Echo contrast - Optison was used to delineate the endocardium and to estimate the LV ejection fraction) Compared to the study from 12/11/2021, there is a significant drop in the LV ejection fraction. Dr Israel Mcgill MD [facility] (Electronically Signed) Final Date: 12 February 2023 11:17 S
[2023-02-11] MEDS: perflutren protein-a microsphr 0.22 mg/mL SDV 3 mL IV (10:05)
== END 2023-02-11 09:00 | disposition home or self-care (01) ==
LOC: RAD 09:02
PROVIDERS: PCP Family Medicine; Visit Provider Internal Medicine Cardiovascular Disease
DX: R06.02 Shortness of breath (principal); R06.09 Other forms of dyspnea; I34.0 Nonrheumatic mitral (valve) insufficiency; I07.1 Rheumatic tricuspid insufficiency; I42.0 Dilated cardiomyopathy; I48.11 Longstanding persistent atrial fibrillation; I10 Essential (primary) hypertension; J44.9 Chronic obstructive pulmonary disease, unspecified; I27.20 Pulmonary hypertension, unspecified
CPT/HCPCS: 80048; 83880; 99214; C8929; Q9956

== ENCOUNTER → 2023-08-17 09:54 | Outpatient (BNVA) | payer OTHER, SELFPAY | PROVIDERS: PCP Family Medicine; Visit Provider Nurse Practitioner Family | DX: I11.0 Hypertensive heart disease with heart failure (principal); I50.22 Chronic systolic (congestive) heart failure; I48.11 Longstanding persistent atrial fibrillation; I25.10 Atherosclerotic heart disease of native coronary artery without angina pectoris | CPT/HCPCS: 99214 ==

== ENCOUNTER 2023-09-29 10:11 | Emergency (ER) | payer OTHER, SELFPAY ==
[2023-09-29] VITALS (33 sets, daily range): BP systolic 136–172; BP diastolic 67–99; PULSE 66–92; RESP 10–25; TEMP 36.4; O2SAT 92–99
--- NOTE | 2023-09-29 10:14 | ECG_ITS ---
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 Measurements Intervals Fosters Rate: 79 P: 74 MD: 186 QRS: -35 QRSD: 194 T: 86 QT: 445 QTc: 510 Interpretive Statements SINUS RHYTHM LEFT AXIS DEVIATION [QRS AXIS < -30] LEFT BUNDLE BRANCH BLOCK [120+ ms QRS DURATION, 80+ ms Q/S IN V1/V2, 85+ ms R IN I/aVL/V5/V6] Compared to ECG 09/02/2022 10:11:06 Atrial fibrillation no longer present Aberrant conduction of supraventricular beat(s) no longer present Ventricular premature complex(es) no longer present Electronically Signed On 09-29-2023 10:56:08 CDT by Porfirio Ocasio M.D. [id number] f
--- NOTE | 2023-09-29 10:26 | XRR_ITS ---
PROCEDURE INFORMATION: Exam: XR Chest Exam date and time: 09/29/2023 10:38 AM Age: 78 years old Clinical indication: Pain; Angina pectoris; Additional info: Chest pain TECHNIQUE: Imaging protocol: Radiologic exam of the chest. Views: 1 view. COMPARISON: CR XR chest 1V portable [id number] 09/02/2022 10:16 AM FINDINGS: Lungs: Unremarkable. No consolidation. Pleural spaces: Unremarkable. No pleural effusion. No pneumothorax. Heart/Mediastinum: Unremarkable. No cardiomegaly. Bones/joints: Unremarkable. XR/XR chest 1V portable [id number] IMPRESSION: No acute findings.
[2023-09-29 10:43] LABS: Basophils # 0.1 10^3/uL (0.0-0.1); Basophils % 0.8 %; Eosinophils # 0.3 10^3/uL (0.0-0.8); Eosinophils % 3.5 %; Hematocrit 41.6 % (37-53); Lymphocytes # 2.1 10^3/uL (0.8-4.8); Lymphocytes % 27.7 %; Mean Corpuscular HGB Conc 34.6 g/dL (30-55); Mean Corpuscular Hemoglobin 31.4 pg (27-33); Mean Corpuscular Volume 90.8 fl (82-101); Mean Platelet Volume 10.1 fL (7.4-10.4); Monocytes # 0.9 10^3/uL (0.2-0.9); Monocytes % 12.1 %; Neutrophils # 4.19 10^3/uL (1.8-7.7); Neutrophils % 55.6 %; Nucleated Red Blood Cells % 0 %; Platelet Count 222 10^3/cmm (157-399); Red Blood Count 4.58 10^6/uL (3.85-5.65); Red Cell Distribution Width 12.7 % (12.1-15.1); White Blood Count 7.52 10^3/uL (3.29-11.43)
[2023-09-29 11:05] LABS: INR 1.24 (0.8-1.2)
[2023-09-29 11:11] LABS: Troponin(5th) Baseline 24 ng/L (0-15)
[2023-09-29 11:28] LABS: Alanine Aminotransferase 14 U/L (0-41); Albumin Level 4.4 g/dL (3.5-5.2); Alkaline Phosphatase 67 U/L (40-130); Aspartate Amino Transferase 17 U/L (0-40); Blood Urea Nitrogen 18 mg/dL (8-23); Calcium 9.2 mg/dL (8.5-10.5); Carbon Dioxide 28 mmol/L (22-29); Chloride 98 mmol/L (98-107); Creatinine Clr Calc Pharmacy 77.5902; Globulin 2.3 g/dL (1.3-4.6); Glucose 108 mg/dL (65-115); NT Pro B Type Natriuretic Pept 928 pg/mL (0-450); Osmolality Calculated 288 mOsm/kg (285-295); Sodium 138 mmol/L (136-145); Total Bilirubin 0.3 mg/dL (0.15-1.2); Total Protein 6.7 g/dL (6.6-8.7)
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
--- NOTE | 2023-09-29 12:12 | ECG_ITS ---
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 Measurements Intervals [place] Rate: 54 P: 52 NC: 165 QRS: -45 QRSD: 197 T: 73 QT: 504 QTc: 480 Interpretive Statements SINUS BRADYCARDIA WITH MARKED SINUS ARRHYTHMIA LEFT AXIS DEVIATION [QRS AXIS < -30] LEFT BUNDLE BRANCH BLOCK [120+ ms QRS DURATION, 80+ ms Q/S IN V1/V2, 85+ ms R IN I/aVL/V5/V6] Compared to ECG 09/29/2023 10:14:09 Sinus rhythm no longer present Electronically Signed On 09-29-2023 16:17:17 CDT by Porfirio Ocasio M.D. [email or web address]
[2023-09-29 13:02] LABS: Troponin 5 2HR 21.31 ng/L (0-15); Troponin 5 2HR Delta -2.69 ABS# (0-10)
== END 2023-09-29 13:24 | disposition home or self-care (01) ==
PROVIDERS: Emergency Provider Emergency Medicine; PCP Family Medicine
DX: R07.89 Other chest pain (principal); Z79.84 Long term (current) use of oral hypoglycemic drugs; E11.9 Type 2 diabetes mellitus without complications; E78.5 Hyperlipidemia, unspecified; I11.0 Hypertensive heart disease with heart failure; I50.9 Heart failure, unspecified; I43 Cardiomyopathy in diseases classified elsewhere; J44.9 Chronic obstructive pulmonary disease, unspecified
CPT/HCPCS: 71045; 80053; 83880; 84484; 85025; 85610; 93005; 99285

== ENCOUNTER → 2024-02-01 10:00 | Outpatient (BNVA) | payer OTHER, SELFPAY | PROVIDERS: PCP Family Medicine; Visit Provider Internal Medicine Cardiovascular Disease | DX: I42.0 Dilated cardiomyopathy (principal); Z95.810 Presence of automatic (implantable) cardiac defibrillator; I10 Essential (primary) hypertension; I48.11 Longstanding persistent atrial fibrillation; I25.10 Atherosclerotic heart disease of native coronary artery without angina pectoris; I27.20 Pulmonary hypertension, unspecified | CPT/HCPCS: 99214 ==

== ENCOUNTER 2024-08-03 08:41 | Outpatient (CLI) | payer OTHER, SELFPAY ==
[2024-08-03 09:07] LABS: Basophils # 0.1 10^3/uL (0.0-0.1); Basophils % 0.9 %; Eosinophils # 0.3 10^3/uL (0.0-0.8); Eosinophils % 4.5 %; Hematocrit 43.2 % (37-53); Mean Corpuscular HGB Conc 33.3 g/dL (30-55); Mean Corpuscular Hemoglobin 31.1 pg (27-33); Mean Corpuscular Volume 93.3 fl (82-101); Mean Platelet Volume 9.9 fL (7.4-10.4); Monocytes # 0.8 10^3/uL (0.2-0.9); Monocytes % 12.1 %; Neutrophils % 50.2 %; Nucleated Red Blood Cells % 0 %; Platelet Count 209 10^3/cmm (157-399); Red Blood Count 4.63 10^6/uL (3.85-5.65); Red Cell Distribution Width 13.2 % (12.1-15.1); White Blood Count 6.38 10^3/uL (3.29-11.43)
[2024-08-03 09:29] LABS: Creatinine Urine, Random 123 mg/dL (39-259); Microalbum Creatinine Ratio Ur 8 mg/dL (0-20); Microalbumin Random Urine 1 ug/dL (0-20)
[2024-08-03 09:31] LABS: Albumin Level 4.2 g/dL (3.5-5.2); Anion Gap 13.2 (5-19); Blood Urea Nitrogen 12 mg/dL (8-23); Calcium 9.1 mg/dL (8.5-10.5); Carbon Dioxide 28 mmol/L (22-29); Chloride 104 mmol/L (98-107); Glucose 110 mg/dL (65-115); Phosphorus 3.6 mg/dL (2.5-4.5); Potassium 4.2 mmol/L (3.5-5.1); Sodium 141 mmol/L (136-145)
[2024-08-03 10:11] LABS: Calcium 9.1 mg/dL (8.5-10.5)
== END 2024-08-03 08:42 | disposition home or self-care (01) ==
LOC: LAB 08:45
PROVIDERS: PCP Family Medicine; Visit Provider Registered Nurse
DX: N18.32 Chronic kidney disease, stage 3b (principal)
CPT/HCPCS: 36415; 80069; 82044; 82310; 83970; 85025

== ENCOUNTER 2025-04-02 08:36 | Outpatient (RCR) | payer OTHER, SELFPAY | END 2025-04-17 23:59 | disposition home or self-care (01) | LOC: SPT 08:36 | PROVIDERS: Visit Provider Family Medicine | DX: M25.561 Pain in right knee (principal) | CPT/HCPCS: 97110; 97161 ==

== ENCOUNTER 2025-04-18 05:00 | Outpatient (RCR) | payer OTHER, SELFPAY | END 2025-05-18 23:59 | disposition home or self-care (01) | LOC: SPT 05:00 | PROVIDERS: Visit Provider Family Medicine | DX: M25.561 Pain in right knee (principal) | CPT/HCPCS: 97110 ==

== ENCOUNTER 2025-05-19 05:00 | Outpatient (RCR) | payer OTHER, SELFPAY | END 2025-06-17 23:59 | disposition home or self-care (01) | LOC: SPT 05:00 | PROVIDERS: Visit Provider Family Medicine | DX: M25.561 Pain in right knee (principal) | CPT/HCPCS: 97110 ==

== ENCOUNTER 2025-06-18 05:00 | Outpatient (RCR) | payer OTHER, SELFPAY | END 2025-06-25 09:23 | disposition home or self-care (01) | LOC: SPT 05:00 | PROVIDERS: Visit Provider Family Medicine | DX: M25.561 Pain in right knee (principal) | CPT/HCPCS: 97110 ==